=== PATIENT | male | born 1985 | race Caucasian/White ===

== ENCOUNTER → 2018-07-21 15:37 | Outpatient (CLI) | payer OTHER, SELFPAY ==
[2018-07-21 16:43] LABS: Liquefaction Semen YES (YES); Sperm Count 222 x10^6/mL (20-150); Sperm Motility 70% % Motile; Volume Semen 1.75 (1.0-5.0)
[2018-07-21 16:44] LABS: Sperm Morphology 15 %ABNORM (0-30)
== END ==
DX: N46.9 Male infertility, unspecified (principal)
CPT/HCPCS: 89320